=== PATIENT | male | born 1965 | race Asian ===

== ENCOUNTER 2017-03-18 10:09 | Day surgery (SDC) | payer OTHER ==
[~2017-03-18] VITALS: Ht 170.2 cm; Wt 64.6 kg
[2017-03-18 10:55] VITALS: Ht 170.2 cm; Wt 64.6 kg
[2017-03-18] MEDS ORDERED: AMLODIPINE PO (11:07)
[2017-03-18 11:19] VITALS: BP 134/80; PULSE 76; RESP 13
[2017-03-18] MEDS ORDERED: MIDAZOLAM 1 MG/ML 2 ML INJ ONE ×2 (12:01)
[2017-03-18] MEDS ORDERED: FENTAnyl 50 MCG/ML VIAL ONE (12:01)
[2017-03-18 12:10] VITALS: BP 109/70; PULSE 85; RESP 18
--- NOTE | 2017-04-21 07:42 | GILP ---
DATE OF PROCEDURE: 04/02/2017 PROCEDURE PERFORMED: Colonoscopy and biopsy. SURGEON: Joshua Alcantar MD. PREOPERATIVE DIAGNOSES: 1. Positive occult blood in stool. 2. Screening colonoscopy. POSTOPERATIVE DIAGNOSES: 1. Colonoscopy all the way to the cecum. 2. Two small polyps, one in the cecum and the other one in the sigmoid colon were removed using the biopsy forceps. 3. Internal hemorrhoids. INDICATION FOR PROCEDURE: Mr. Ahsan Gerard is a 51-year-old male patient who was noted to have positive occult blood in stool. The patient never has had a screening colonoscopy. The procedure and possible complications were well explained to the patient. He understood and consented to the procedure. DESCRIPTION OF PROCEDURE: Under the influence of fentanyl and Versed the colonoscope was carefully introduced in the rectum and under direct vision it was advanced all the way to the cecum. Findings, the patient had a polyp in the cecum and another one in the sigmoid colon and they were removed using the biopsy forceps. He was noted to have internal hemorrhoids. He tolerated the procedure very well and there was no complication from the procedure. At the end of procedure he was awake with stable vital signs and he was discharged home in the care of his family. IMPRESSION: 1. Colonoscopy all the way to the cecum. 2. Two small polyps, one in the cecum and the other one in the sigmoid colon. They were removed using the biopsy forceps. 3. Internal hemorrhoids. PLAN: 1. Await histopathology report. 2. Next screening colonoscopy in 5 years. Dictated By: MD DORIS Alanis/diandra/pat /Document#: [id number] CC: Joshua Alcantar MD;*[facility]*
== END 2017-03-18 14:51 | disposition home or self-care (01) ==
LOC: GIL 10:09
PROVIDERS: ATTEND Internal Medicine Gastroenterology
DX: Z12.11 Encounter for screening for malignant neoplasm of colon (principal); D12.0 Benign neoplasm of cecum; D12.5 Benign neoplasm of sigmoid colon; K64.8 Other hemorrhoids; I10 Essential (primary) hypertension
CPT/HCPCS: 45380; 88305; J2250; J3010; Z7610